=== PATIENT | female | born 1950 | race African-American/Black ===

== ENCOUNTER → 2017-05-16 | Outpatient (CLI) | payer OTHER ==
[~2017-05-16] MED LIST: DARVOCET-N 1001 TAB PO; LORTAB 5/500 TA1 TA2 PO; ZESTORETIC 20/21 TAB PO
--- NOTE | ~2017-05-16 | BD1 ---
[facility] A Service of [facility] RADIOLOGY TEXT RESULTS PATIENT: LUZ ALEJO LOCATION: [facility] : 54 UNIT #: [id number] AGE: [address]: RADHA BURT MD SEX: F ORDER DR: [id number] [facility] [address] [place], [place] [address] [id number] O MR#: [id number] Acc #: [id number] NAME: LUZ ALEJO : 1950 SEX: F STUDY DATE/TIME: 05/16/2017 12:08 UNIT: [facility] ROOM: STUDY DESCRIPTION: BD Dexa Bone Dens 1+ Site Attending Physician: Radha Burt M.D. Referring Physician: Radha Burt M.D. Ordering Physician: Radha Burt M.D. Primary Care Physician: Radha Burt M.D. MEDICAL IMAGING REPORT This report is preliminary unless electronic signature is present EXAM DXA scan, 05/16/2017 HISTORY Status post menopause with no hormone replacement therapy. Osteopenia. Hysterectomy at age 52 with removal of both ovaries. Hypertension with blood pressure medication for 23 years. FINDINGS Bone mineral density in the lumbar spine from L1-L4 was 1.0 g/cm2 which is 1.4 standard deviations below the mean when compared to the young adult reference population which is characteristic of osteopenia. This is 0.6 standard deviations above the mean when compared to the age-matched population. Bone mineral density in the left hip was 0.938 g/cm2 which is 0.6 standard deviations below the mean when compared to the young adult reference population which is within the range of normal. This is 0.4 standard deviations above the mean when compared to the age-matched population. IMPRESSION Bone mineral density in the lumbar spine characteristic of osteopenia and within the left hip within the range of normal. Dictated by... Beni Alejo M.D. THIS IS AN ELECTRONICALLY VERIFIED REPORT Beni Alejo M.D. at 05/16/2017 5:07 PM FRANCES/shonda TD: 05/16/2017 15:52 JOB #: [id number] [facility] A Service of [facility] RADIOLOGY TEXT RESULTS PATIENT: LUZ ALEJO LOCATION: [facility] #: [id number] : 54 UNIT #: [id number] AGE: [address]: RADHA BURT MD SEX: F ORDER DR: MEDICAL IMAGING REPORT Page 1 of 1 COPY
== END | disposition home or self-care (01) ==
LOC: CWCC 05-09 09:30
DX: Z13.820 Encounter for screening for osteoporosis (principal); M85.88 Other specified disorders of bone density and structure, other site
CPT/HCPCS: 77080

== ENCOUNTER → 2017-07-17 | Outpatient (CLI) | payer OTHER ==
--- NOTE | ~2017-07-17 | CR229 ---
[facility] A Service of [facility] RADIOLOGY TEXT RESULTS PATIENT: LUZ SHARMA LOCATION: [facility] : 54 UNIT #: [id number] AGE: [address]: RADHA BURT MD SEX: F ORDER DR: [id number] [address] [address] [id number] O MR#: [id number] Acc #: [id number] NAME: LUZ SHARMA : 1950 SEX: F STUDY DATE/TIME: 07/17/2017 12:31 UNIT: [facility] ROOM: STUDY DESCRIPTION: CR Shoulder Min 2 View Lt Attending Physician: Radha Burt M.D. Referring Physician: Radha Burt M.D. Ordering Physician: Radha Burt M.D. Primary Care Physician: Radha Burt M.D. MEDICAL IMAGING REPORT This report is preliminary unless electronic signature is present EXAM Left shoulder 07/17/2017 INDICATION 67-year-old female with shoulder pain on the left. Decreasing range of motion. Symptoms began 6 months ago without known injury. TECHNIQUE AND COMPARISON 2 views of the left shoulder. No comparisons. FINDINGS Mild degenerative change of the AC joint. No acute fracture. No secondary sign of dislocation. A scapular Y-view was not provided. The coracoclavicular joint is top normal in diameter. Correlate with signs or symptoms of mild shoulder separation injury. IMPRESSION 1. The coracoclavicular joint distance is top normal. Correlate with any sign or symptom of mild shoulder separation injury. 2. Mild degenerative change of the AC joint. Otherwise, negative. Dictated by... Scottie Raya M.D. THIS IS AN ELECTRONICALLY VERIFIED REPORT Scottie Raya M.D. at 07/18/2017 5:20 PM Ysabel TD: 07/18/2017 10:59 JOB #: [id number] MEDICAL IMAGING REPORT [facility] A Service of [facility] RADIOLOGY TEXT RESULTS PATIENT: LUZ SHARMA LOCATION: [facility] #: [id number] : 54 UNIT #: [id number] AGE: [address]: RADHA BURT MD SEX: F ORDER DR: Page 1 of 1 COPY
== END | disposition home or self-care (01) ==
LOC: CRAD 12:01
DX: M25.512 Pain in left shoulder (principal); M19.012 Primary osteoarthritis, left shoulder
CPT/HCPCS: 73030